=== PATIENT | male | born 1930 | race Caucasian/White ===

== ENCOUNTER 2017-07-16 16:55 | Emergency (ER) | payer MEDICARE, BC ==
[~2017-07-16] VITALS: Ht 185.4 cm; Wt 86.4 kg
[~2017-07-16 16:55] MED LIST: ASPIRIN 32325 MG/TAB PO; ASPIRIN 81M81 MG/TA2 PO; ASPIRIN E.C. 8181 MG PO; BACTRIM DS 8001 TAB PO; BUMEX2 MG PO; CEFTIN500 MG PO; CIPRO 500MG TA500 MG PO; ELIQUIS 2.5 PO; ELIQUIS 5MG PO; FLOMAX 0.40.4 MG/CAP PO; LANOXIN0.25 MG PO; LOPRESSOR 225 MG/TAB PO; METAMUCIL1 PDR PO; METOPROLOL25 MG PO; NAPROSYN500 MG PO; NORCO 325 MG-51 TAB; NORCO 325 MG-7.1 TAB PO; OMNICEF 300MG300 MG PO; PLAVIX 75MG TAB75 MG PO; POTASSIUM CH2 MEQ/ML PO; PRAVACHOL 20MG20 MG PO; PRAVACHOL10 MG PO; SUPER EPA 1201200 MG PO; ULTRAM 50MG TAB50 MG PO
[2017-07-16 16:59] VITALS: BP 191/83; PULSE 60; TEMP 99.1
== END 2017-07-16 18:28 | disposition home or self-care (01) ==
LOC: COL.ER 16:55
DX: S09.90XA Unspecified injury of head, initial encounter (principal); S01.112A Laceration without foreign body of left eyelid and periocular area, initial encounter; I25.10 Atherosclerotic heart disease of native coronary artery without angina pectoris; Z95.5 Presence of coronary angioplasty implant and graft; W18.09XA Striking against other object with subsequent fall, initial encounter; Y92.009 Unspecified place in unspecified non-institutional (private) residence as the place of occurrence of the external cause

== ENCOUNTER 2017-07-23 14:02 | Emergency (ER) | payer MEDICARE, BC ==
[2017-07-23 14:07] VITALS: BP 113/62; PULSE 73; TEMP 97.7
== END 2017-07-23 14:17 | disposition home or self-care (01) ==
LOC: COL.ER 14:02
DX: S01.112D Laceration without foreign body of left eyelid and periocular area, subsequent encounter (principal); X58.XXXD Exposure to other specified factors, subsequent encounter

== ENCOUNTER → 2018-02-26 | Outpatient (CLI) | payer MEDICARE, BC ==
[2018-02-26 14:32] LABS: CALCIUM 8.6 mg/dL (8.4-10.2); CREATININE, serum 0.82 mg/dL (0.66-1.25); POTASSIUM 4.4 mmol/L (3.4-5.0)
== END ==
LOC: COL.LAB 13:58
PROVIDERS: Internal Medicine Interventional Cardiology
DX: I25.10 Atherosclerotic heart disease of native coronary artery without angina pectoris (principal)